=== PATIENT | male | born 1955 | race Caucasian/White ===

== ENCOUNTER 2021-09-20 12:32 | Emergency (ER) | payer MEDICARE, OTHER ==
[2021-09-20] MEDS ORDERED: Boostrix 0.5 ML (Tdap) VIAL ONE (14:25)
[2021-09-20] MEDS ORDERED: Lidocaine 1% PF 5 ML VIAL FS SCH (14:45)
== END 2021-09-20 15:50 | disposition home or self-care (01) ==
LOC: CSHERS 12:32
DX: S61.412A Laceration without foreign body of left hand, initial encounter (principal); E11.9 Type 2 diabetes mellitus without complications; F17.210 Nicotine dependence, cigarettes, uncomplicated; W26.0XXA Contact with knife, initial encounter; Z23 Encounter for immunization
CPT/HCPCS: 12001; 90471; 90715